=== PATIENT | male | born 1965 | race Caucasian/White ===

== ENCOUNTER 2016-12-17 10:44 | Emergency (ER) | payer OTHER ==
[2016-12-17] MEDS ORDERED: SODIUM CHLORIDE 0.9% 500 ML IV STA (11:10)
[2016-12-17] MEDS ORDERED: ONDANSETRON 4 MG/2 ML VIAL IVP STA (11:10)
--- NOTE | 2016-12-17 11:14 | ED ---
General Adult HPI - General Chief complaint: Abdominal Pain Stated complaint: ABDOMINAL PAIN, NAUSEA Time Seen by Provider: 12/17/16 10:50 Source: patient, RN notes reviewed Mode of arrival: ambulatory Limitations: no limitations - History of Present Illness Initial comments: This is a 51-year-old male who presents to the emergency department complaining of abdominal pain for 2 years patient states he just got insurance so he wanted to have it evaluated today. Patient states over the last week it seems to be a little worse. Patient states it's periumbilical area. Patient states he is nauseous after he eats most of the time. Patient states occasionally vomits in the last 3 days he has vomited each day but not all day long. There are periods of time the patient states region eat and everything is fine but there are other times when anytime he eats anything he has belly pain. Patient denies any diarrhea. Patient denies any fever or chills. Patient denies any previous surgeries. Patient denies any chest pain difficulty breathing or shortness of breath. - Related Data Home Medications Medication Instructions Recorded Confirmed No Known Home Medications [No 12/17/16 12/17/16 Known Home Medications] Allergies Allergy/AdvReac Type Severity Reaction Status Date / Time Penicillins Allergy Rash/Hives Verified 12/17/16 11:04 Review of Systems ROS Statement: Those systems with pertinent positive or pertinent negative responses have been documented in the HPI. ROS Other: All systems not noted in ROS Statement are negative. Past Medical History Past Medical History: No Reported History History of Any Multi-Drug Resistant Organisms: None Reported Past Surgical History: No Surgical Hx Reported Past Psychological History: No Psychological Hx Reported Smoking Status: Current every day smoker Past Alcohol Use History: None Reported Past Drug Use History: None Reported General Exam - General Exam Comments Initial Comments: GENERAL: Patient is well-developed and well-nourished. Patient is nontoxic and well- hydrated and is in mild distress. ENT: Neck is soft and supple. No significant lymphadenopathy is noted. Oropharynx is clear. Moist mucous membranes. Neck has full range of motion without eliciting any pain. EYES: The sclera were anicteric and conjunctiva were pink and moist. Extraocular movements were intact and pupils were equal round and reactive to light. Eyelids were unremarkable. PULMONARY: Unlabored respirations. Good breath sounds bilaterally. No audible rales rhonchi or wheezing was noted. CARDIOVASCULAR: There is a regular rate and rhythm without any murmurs gallops or rubs. ABDOMEN: Patient's abdomen is tender at the umbilicus and I did not palpate a hernia. SKIN: Skin is clear with no lesions or rashes and otherwise unremarkable. NEUROLOGIC: Patient is alert and oriented x3. Cranial nerves II through XII are grossly intact. Motor and sensory are also intact. Normal speech, volume and content. Symmetrical smile. MUSCULOSKELETAL: Normal extremities with adequate strength and full range of motion. LYMPHATICS: No significant lymphadenopathy is noted PSYCHIATRIC: Normal psychiatric evaluation. Normal interpersonal interactions appears functionally intact in deals appropriately with others. No signs of depression. No signs of anxiety. Limitations: no limitations Course Vital Signs 12/17/16 10:49 Temperature 97.1 F L Pulse Rate 61 Respiratory 18 Rate Blood Pressure 124/67 O2 Sat by Pulse 97 Oximetry Medical Decision Making - Medical Decision Making Computed tomography scan shows possible ileus versus gastroenteritis. There also is an area of possible colitis. I went back to the room to offer the patient admission because of the possible colitis the high white count the patient did not want to stay and stated he would rather follow-up with his primary medical care doctor soon as she gets one. I indicated if he was here he would definitely see service inspector right away he stated he would follow- up with his primary and asked to see a service inspector all patient. Patient states since this is been ongoing 2 years ago wait a few more days. - Lab Data Result diagrams: 12/17/16 11:06 12/17/16 11:06 Lab Results 12/17/16 12/17/16 Range/Units 11:06 11:06 WBC 16.1 H (3.8-10.6) k/uL RBC 4.63 (4.30-5.90) m/uL Hgb 15.0 (13.0-17.5) gm/dL Hct 41.7 (39.0-53.0) % MCV 90.0 (80.0-100.0) fL MCH 32.4 (25.0-35.0) pg MCHC 36.1 (31.0-37.0) g/dL RDW 12.7 (11.5-15.5) % Plt Count 302 (150-450) k/uL Neutrophils % 86 % Lymphocytes % 8 % Monocytes % 4 % Eosinophils % 0 % Basophils % 0 % Neutrophils # 13.9 H (1.3-7.7) k/uL Lymphocytes # 1.3 (1.0-4.8) k/uL Monocytes # 0.7 (0-1.0) k/uL Eosinophils # 0.0 (0-0.7) k/uL Basophils # 0.0 (0-0.2) k/uL Sodium 139 (137-145) mmol/L Potassium 4.4 (3.5-5.1) mmol/L Chloride 104 (98-107) mmol/L Carbon Dioxide 25 (22-30) mmol/L Anion Gap 10 mmol/L BUN 17 (9-20) mg/dL Creatinine 0.95 (0.66-1.25) mg/dL Est GFR (MDRD) Af Amer >60 (>60 ml/min/1.73 sqM) Est GFR (MDRD) Non-Af >60 (>60 ml/min/1.73 sqM) Glucose 115 H (74-99) mg/dL Calcium 9.4 (8.4-10.2) mg/dL Total Bilirubin 0.8 (0.2-1.3) mg/dL AST 32 (17-59) U/L ALT 36 (21-72) U/L Alkaline Phosphatase 70 (38-126) U/L Total Protein 7.1 (6.3-8.2) g/dL Albumin 4.4 (3.5-5.0) g/dL Amylase 107 (30-110) U/L Lipase 290 (23-300) U/L Disposition Clinical Impression: Abdominal pain Disposition: HOME SELF-CARE Condition: Good Instructions: Abdominal Pain (ED) Referrals: None,Stated [Primary Care Provider] - 1-2 days Time of Disposition: 13:16
[2016-12-17 11:36] LABS: Basophils % (A) 0 %; CH 33.4; CHCM 37.2; Eosinophils % (A) 0 %; HCT 41.7 % (39.0-53.0); HDW 2.52; Luc # (Auto) 0.18; Luc % (Auto) 1; Lymphocytes # (A) 1.3 k/uL (1.0-4.8); Lymphocytes % (A) 8 %; MCH 32.4 pg (25.0-35.0); MCHC 36.1 g/dL (31.0-37.0); Mean Platelet Volume 6.5; Monocytes # (A) 0.7 k/uL (0-1.0); Monocytes % (A) 4 %; Neutrophils # (A) 13.9 k/uL (1.3-7.7); Neutrophils % (A) 86 %; RBC 4.63 m/uL (4.30-5.90); RDW 12.7 % (11.5-15.5); WBC 16.1 k/uL (3.8-10.6); WBC (Perox) 16.46
[2016-12-17 11:47] LABS: AST 32 U/L (17-59); Alkaline Phosphatase 70 U/L (38-126); Amylase 107 U/L (30-110); Blood Urea Nitrogen 17 mg/dL (9-20); Calcium 9.4 mg/dL (8.4-10.2); Chloride 104 mmol/L (98-107); Glucose 115 mg/dL (74-99); Non-African American GFR(MDRD) >60 (>60 ml/min/1.73 sqM); Potassium 4.4 mmol/L (3.5-5.1); Sodium 139 mmol/L (137-145); Total Bilirubin 0.8 mg/dL (0.2-1.3); Total Protein 7.1 g/dL (6.3-8.2)
--- NOTE | 2016-12-17 11:47 | XR ---
EXAMINATION TYPE: XR KUB DATE OF EXAM: 12/17/2016 COMPARISON: NONE HISTORY: Nausea, vomiting and abdominal pain TECHNIQUE: One view abdominal series FINDINGS: The osseous structures are intact. The bowel gas pattern is nonspecific. Prominent small bowel loops in the left and central abdomen are noted. No suspicious calcifications. IMPRESSION: 1. Dilated small bowel loops mid and left abdomen. Localized ileus versus partial obstruction. Correl ate clinically.
[2016-12-17 11:54] LABS: ALT 36 U/L (21-72); Anion Gap 10 mmol/L; Carbon Dioxide 25 mmol/L (22-30)
[2016-12-17] MEDS ORDERED: RX INFO: IV CONTRAST WAS GIVEN 1 EACH MISC MISCELLANE PRN (12:19)
--- NOTE | 2016-12-17 13:07 | CT ---
EXAMINATION TYPE: CT abdomen pelvis w con DATE OF EXAM: 12/17/2016 COMPARISON: NONE INDICATION: Abdominal pain with nausea for years DLP: 707 mGycm, Automated exposure control for dose reduction was used. CONTRAST: 100 mL of Omnipaque 300. Study performed with Oral Contrast TECHNIQUE: Axial images were obtained from above the diaphragm to the pubic rami in the axial plane a t 5 mm thick sections. Reconstructed images are reviewed on the computer in the coronal plane. FINDINGS: Limited CT sections are obtained the lung bases. The lung bases are clear. CT ABDOMEN: Liver: There are scattered small hypodensities within the liver, too small to classify but suspected to be small hepatic cysts. Spleen: Normal Pancreas: Normal Adrenal glands: The adrenal glands are normal. Gallbladder: Normal Kidneys: No masses are evident. No hydronephrosis is present. No cysts are present. Delayed images were obtained through the kidneys, which remain unremarkable. Aorta: Vascular calcification is within the aorta. Inferior vena cava: Normal. CT PELVIS: Loops of bowel are fluid-filled. Underlying ileus could be considered. Gastroenteritis is not exclude d. Consider some mild colitis within the sigmoid colon and possible wall thickening diffusely. Biomet ry changes are not identified. Sigmoid diverticulosis is present. Appendix: Not visualized Urinary bladder: Normal. Genitourinary structures: Prostate is somewhat prominent. Osseous structures: No suspicious lytic or sclerotic lesions. IMPRESSIONS: 1. Sigmoid diverticulosis. 2. Some mild sigmoid colitis is not excluded. 3. Multiple fluid-filled loops of bowel without dilatation. Correlate for mild ileus or gastroenterit is.
[2016-12-17] MEDS ORDERED: ONDANSETRON 4 MG ODT STARTER PACK 2 TAB BTL PO STA (13:16)
[2016-12-17 13:34] VITALS: BP 118/59; PULSE 62; RESP 16; TEMP 97.8
== END 2016-12-17 13:34 | disposition home or self-care (01) ==
LOC: EC 10:44
DX: R10.33 Periumbilical pain (principal); R11.2 Nausea with vomiting, unspecified; F17.200 Nicotine dependence, unspecified, uncomplicated; Z88.0 Allergy status to penicillin
CPT/HCPCS: 99284; 96374; 96361; 36415; 80053; 82150; 83690; 85025; 74000; 74177; J2405; Q9967; S0119